=== PATIENT | female | born 1975 | race Caucasian/White ===

== ENCOUNTER 2019-04-18 19:59 | Inpatient (IN) ==
[2019-04-18] MEDS ORDERED: Ondansetron 4 MG/2 ML VIAL IVP ONE (20:45)
[2019-04-18] MEDS ORDERED: 0.9 % Sodium Chloride 1,000 ML IVC ONE (20:45)
[2019-04-18] MEDS ORDERED: *HR* FentaNYL (PF) 100 MCG/2 ML VIAL IVP ONE (20:46)
--- NOTE | 2019-04-18 20:49 | Emergency Department Note ---
Disposition Clinical Impression: Pyelonephritis, Kidney stone Disposition: Still a Patient Condition: Good Referrals: NONE,PCP [Primary Care Provider] - Forms: ED Satisfaction Letter Time of Disposition: 22:15 General Adult HPI - General Chief complaint: ED Nausea/Vomiting/Diarrhea Stated complaint: Flank pain Time Seen by Provider: 04/18/19 20:35 Source: patient Limitations: no limitations Nursing Notes Reviewed: Yes Vital Signs Reviewed: Yes - History of Present Illness HPI Narrative: Patient presenting to the emergency department for evaluation after initially seen at urgent care and diagnosed with UTI. Patient took 1 dose of antibiotics and had vomiting as well as worsening left flank pain. Patient was told to return to the emergency department for any new or worsening symptoms. Overall patient's symptoms started approximately one month ago with increased urinary frequency with associated hesitancy. Patient with no specific dysuria. Patient with no previous UTI. Previous history of kidney stone. Patient has had C-sections but no other abdominal surgeries. Patient's vomiting did not start until just prior to arrival. Flank pain just prior to arrival. No fevers, chills, weight loss, chest pain, shortness of breath, increased sw elling in the extremities, vaginal discharge. Pain Scale: 8 - Related Data Previous Rx's Medication Instructions Recorded Clotrimazole 1 applic MC TID #1 bottle 06/27/18 Allergies Allergy/AdvReac Type Severity Reaction Status Date / Time peanut Allergy Swelling Verified 06/27/18 16:35 of Lip/Tongue/Throat NSAID starting w/T Allergy Fatigued Uncoded 06/27/18 16:35 All systems ED: reviewed and negative except as stated. 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 - Social History Smoking Status: Never smoker Smokeless Tobacco Status: No Alcohol use: Reports: none Drug use: Reports: none Physical Exam General: Mild discomfort secondary to pain as well as emesis bag and vomiting episode Head: Normocephalic Atraumatic Eyes: PERRL, EOMI ENT: Airway patent, no stridor Neck: supple, no meningismus Chest: Lungs clear to auscultation bilateral Cardiac: Regular rate and rhythm, no murmurs, rubs or gallops Abdomen: soft, nontender, nondistended; no guarding, rebound, or tenderness to percussion, left CVA tenderness positive Musculoskeletal: Calves symmetric, nontender. Skin: No rash, normal skin tone. Neuro: Alert and Oriented to person, place, and time; No obvious focal deficit. - General Limitations: no limitations General appearance: alert, in no apparent distress Course - Reevaluation(s) Reevaluation #1: Patient with concern for urinary tract infection as well as elevated white count associated left CVA tenderness. Patient has associated stone at the UVJ junction. Patient was given pain medication as well as Zofran. Patient is con tinuing to feel nauseous. Given the fact that she was unable to tolerate by mouth at home is continuing to feel nauseous and has concern for a UTI that could have a complicated infected stone the patient will need to be seen by urology. Patient is been given a dose of ceftriaxone within the emergency department. Patient's nausea medications a been repeated and the case was discussed with Dr. Bliss. Patient will be able to be evaluated by urology in the a.m. to have her problem addressed. She will need admission by the hospitalist service at this time. Hospitalist has been paged. Patient has been signed out to Dr. Phillips and Dr. Landeros for final admission. Vital Signs Temperature 98.4 F 04/18/19 20:10 Pulse Rate 110 04/18/19 20:10 Respiratory Rate 20 04/18/19 20:10 Blood Pressure 154/95 04/18/19 20:10 O2 Sat by Pulse Oximetry 98 04/18/19 20:10 Temperature 98.4 F 04/18/19 20:10 Pulse Rate 110 04/18/19 20:10 Respiratory Rate 20 04/18/19 20:10 Blood Pressure 154/95 04/18/19 20:10 O2 Sat by Pulse Oximetry 98 04/18/19 20:10 Oxygen Delivery Oxygen Delivery Room Air Medical Decision Making - Lab Data Result diagrams: 04/18/19 21:01 04/18/19 21:01 Lab Results 04/18/19 04/18/19 04/18/19 Range/Units 18:00 20:01 21:01 WBC 14.3 H (4.3-11.1) K/mcL RBC 4.11 (3.82-4.97) M/mcL Hgb 11.9 (11.5-15.4) g/dL Hct 36.1 (35.3-44.9) % MCV 87.8 (83.0-100.0) fL MCH 29.0 (28.0-33.3) pg MCHC 33.0 (31.6-35.5) g/dL RDW 14.4 (11.5-14.5) % Plt Count 305 (140-400) K/mcL MPV 9.7 (9.4-12.4) fL Immature Gran % 0.3 (0-4) % Seg Neutrophils % 93.9 % Lymphocytes % 3.6 % Monocytes % 2.0 % Eosinophils % 0.0 % Basophils % 0.2 % Neutrophils # 13.4 H (1.6-8.9) K/mcL Lymphocytes # 0.5 L (0.6-4.6) K/mcL Monocytes # 0.3 (0.0-1.3) K/mcL Eosinophils # 0.0 (0.0-0.6) K/mcL Basophils # 0.0 (0.0-0.2) K/mcL Sodium (136-145) mEq/L Potassium (3.5-5.1) mEq/L Chloride (98-107) mEq/L Carbon Dioxide (23-29) mEq/L BUN (6-20) mg/dL Creatinine (0.60-1.20) mg/dL Est GFR ( Amer) (> 60) Est GFR (Non-Af Amer) (> 60) BUN/Creatinine Ratio (6-26) Glucose (70-105) mg/dL Calculated Osmolality (280-300) Calcium (8.6-10.3) mg/dL Total Bilirubin (0.3-1.0) mg/dL Direct Bilirubin (0.0-0.2) mg/dL Indirect Bilirubin (0.0-1.2) mg/dL AST (13-39) Units/L ALT (7-52) Units/L Alkaline Phosphatase (34-104) Units/L Serum Total Protein (6.4-8.9) g/dL Albumin (3.5-5.7) g/dL Globulin (2.4-3.5) g/dL Albumin/Globulin Ratio (1.1-2.2) Lipase (11-82) Units/L Urine Color [place] A (Yellow) Urine Clarity Cloudy A (Clear) Urine pH 5.5 (5.0-8.0) pH Units Ur Specific [place] 1.028 H (1.010-1.025) Urine Protein 30 H (Neg-Trace) mg/dL Urine Glucose (UA) Normal (Normal) mg/dL Urine Ketones Trace H (Negative) mg/dL Urine Blood Moderate H (Negative) Urine Nitrite Positive A (Negative) Urine Bilirubin Negative (Negative) Urine Urobilinogen Normal (Normal) mg/dL Ur Leukocyte Esterase Moderate H (Negative) Urine Microscopic RBC 0-3 (0-3) per hpf Urine Microscopic WBC TNTC H (0-3) per hpf Ur Squamous Epith Cells Many H (None-Few) per lpf Urine Bacteria Few (None-Few) per hpf Hyaline Casts None Seen (None-Few) per lpf Urine Yeast Few H (None Seen) per hpf Ur Culture Indicated? YES A (NO) Urine Test Negative (Negative) 04/18/19 Range/Units 21:01 WBC (4.3-11.1) K/mcL RBC (3.82-4.97) M/mcL Hgb (11.5-15.4) g/dL Hct (35.3-44.9) % MCV (83.0-100.0) fL MCH (28.0-33.3) pg MCHC (31.6-35.5) g/dL RDW (11.5-14.5) % Plt Count (140-400) K/mcL MPV (9.4-12.4) fL Immature Gran % (0-4) % Seg Neutrophils % % Lymphocytes % % Monocytes % % Eosinophils % % Basophils % % Neutrophils # (1.6-8.9) K/mcL Lymphocytes # (0.6-4.6) K/mcL Monocytes # (0.0-1.3) K/mcL Eosinophils # (0.0-0.6) K/mcL Basophils # (0.0-0.2) K/mcL Sodium 136 (136-145) mEq/L Potassium 3.6 (3.5-5.1) mEq/L Chloride 102 (98-107) mEq/L Carbon Dioxide 24 (23-29) mEq/L BUN 14 (6-20) mg/dL Creatinine 0.95 (0.60-1.20) mg/dL Est GFR ( Amer) > 60 (> 60) Est GFR (Non-Af Amer) > 60 (> 60) BUN/Creatinine Ratio 15 (6-26) Glucose 156 H (70-105) mg/dL Calculated Osmolality 286 (280-300) Calcium 9.3 (8.6-10.3) mg/dL Total Bilirubin 0.4 (0.3-1.0) mg/dL Direct Bilirubin 0.1 (0.0-0.2) mg/dL Indirect Bilirubin 0.3 (0.0-1.2) mg/dL AST 19 (13-39) Units/L ALT 15 (7-52) Units/L Alkaline Phosphatase 56 (34-104) Units/L Serum Total Protein 7.3 (6.4-8.9) g/dL Albumin 4.3 (3.5-5.7) g/dL Globulin 3.0 (2.4-3.5) g/dL Albumin/Globulin Ratio 1.4 (1.1-2.2) Lipase 24 (11-82) Units/L Urine Color (Yellow) Urine Clarity (Clear) Urine pH (5.0-8.0) pH Units Ur Specific [place] (1.010-1.025) Urine Protein (Neg-Trace) mg/dL Urine Glucose (UA) (Normal) mg/dL Urine Ketones (Negative) mg/dL Urine Blood (Negative) Urine Nitrite (Negative) Urine Bilirubin (Negative) Urine Urobilinogen (Normal) mg/dL Ur Leukocyte Esterase (Negative) Urine Microscopic RBC (0-3) per hpf Urine Microscopic WBC (0-3) per hpf Ur Squamous Epith Cells (None-Few) per lpf Urine Bacteria (None-Few) per hpf Hyaline Casts (None-Few) per lpf Urine Yeast (None Seen) per hpf Ur Culture Indicated? (NO) Urine Test (Negative)
[2019-04-18 21:01] LABS: Bacteria,Urine Few per hpf (None-Few); Bilirubin,Urine Negative (Negative); Blood,Urine Moderate (Negative); Clarity,Urine Cloudy (Clear); Color,Urine Orange (Yellow); Glucose,Urine (UA) Normal (Normal); Hyaline Casts,Urine None Seen per lpf (None-Few); Ketones,Urine Trace mg/dL (Negative); Leukocyte Esterase,Urine Moderate (Negative); Nitrite,Urine Positive (Negative); PH,Urine 5.5 pH Units (5.0-8.0); Protein,Urine 30 mg/dL (Neg-Trace); RBC,Urine 0-3 per hpf (0-3); Specific Gravity,Urine 1.028 (1.010-1.025); Squamous Epithelial Cell,Urine Many per lpf (None-Few); Urobilinogen,Urine Normal (Normal); WBC,Urine TNTC per hpf (0-3)
[2019-04-18 21:12] LABS: Yeast,Urine Few per hpf (None Seen)
[2019-04-18 21:13] LABS: Basophils % 0.2 %; Hematocrit 36.1 % (35.3-44.9); Hemoglobin 11.9 g/dL (11.5-15.4); Immature Granulocytes % 0.3 % (0-4); Lymphocytes # 0.5 K/mcL (0.6-4.6); Lymphocytes % 3.6 %; Mean Corpuscular Volume 87.8 fL (83.0-100.0); Mean Platelet Volume 9.7 fL (9.4-12.4); Monocytes # 0.3 K/mcL (0.0-1.3); Neutrophils # 13.4 K/mcL (1.6-8.9); Platelet Count 305 K/mcL (140-400); Red Blood Count 4.11 M/mcL (3.82-4.97); Red Cell Distribution Width 14.4 % (11.5-14.5); Segmented Neutrophils % 93.9 %
[2019-04-18] MEDS ORDERED: cefTRIAXone 1,000 MG in Water for inj. (sterile) 20 ML 10 ML IVP ONE (21:31)
[2019-04-18 21:32] LABS: Alanine Aminotransferase 15 Units/L (7-52); Albumin 4.3 g/dL (3.5-5.7); Albumin/Globulin Ratio 1.4 (1.1-2.2); Alkaline Phosphatase 56 Units/L (34-104); Aspartate Amino Transferase 19 Units/L (13-39); BUN/Creatinine Ratio 15 (6-26); Bilirubin,Direct 0.1 mg/dL (0.0-0.2); Bilirubin,Indirect 0.3 mg/dL (0.0-1.2); Bilirubin,Total 0.4 mg/dL (0.3-1.0); Blood Urea Nitrogen 14 mg/dL (6-20); Calcium 9.3 mg/dL (8.6-10.3); Carbon Dioxide 24 mEq/L (23-29); Chloride 102 mEq/L (98-107); Glucose 156 mg/dL (70-105); Lipase 24 Units/L (11-82); Osmolality,Calculated 286 (280-300); Potassium 3.6 mEq/L (3.5-5.1); Sodium 136 mEq/L (136-145); Total Protein 7.3 g/dL (6.4-8.9); eGFR For Non-African Americans > 60 (> 60)
[2019-04-18] MEDS ORDERED: Metoclopramide 10 MG/2 ML VIAL IVP STA (23:15)
--- NOTE | 2019-04-18 23:39 | Emergency Department Note ---
Disposition Clinical Impression: Pyelonephritis, Kidney stone Disposition: Admitted As Inpatient Condition: Good Referrals: NONE,PCP [Primary Care Provider] - Forms: ED Satisfaction Letter Time of Disposition: 23:37 General Adult HPI - General Chief complaint: ED Nausea/Vomiting/Diarrhea Stated complaint: Flank pain Time Seen by Provider: 04/18/19 20:35 Source: patient Limitations: no limitations - History of Present Illness HPI Narrative: Patient was signed out by the prior provider. Please see their documentation for complete history and physical. 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 Donaldson did speak with urology and a consult was placed. Patient will be admitted to the hospitalist. Time: 23:37 Vital Signs Temperature 98.4 F 04/18/19 20:10 Pulse Rate 110 04/18/19 20:10 Respiratory Rate 20 04/18/19 20:10 Blood Pressure 154/95 04/18/19 20:10 O2 Sat by Pulse Oximetry 98 04/18/19 20:10 Temperature 98.4 F 04/18/19 20:10 Pulse Rate 110 04/18/19 20:10 Respiratory Rate 20 04/18/19 20:10 Blood Pressure 154/95 04/18/19 20:10 O2 Sat by Pulse Oximetry 98 04/18/19 20:10 Oxygen Delivery Oxygen Delivery Room Air Medical Decision Making - Lab Data Result diagrams: 04/18/19 21:01 04/18/19 21:01 Lab Results 04/18/19 04/18/19 04/18/19 Range/Units 18:00 20:01 21:01 WBC 14.3 H (4.3-11.1) K/mcL RBC 4.11 (3.82-4.97) M/mcL Hgb 11.9 (11.5-15.4) g/dL Hct 36.1 (35.3-44.9) % MCV 87.8 (83.0-100.0) fL MCH 29.0 (28.0-33.3) pg MCHC 33.0 (31.6-35.5) g/dL RDW 14.4 (11.5-14.5) % Plt Count 305 (140-400) K/mcL MPV 9.7 (9.4-12.4) fL Immature Gran % 0.3 (0-4) % Seg Neutrophils % 93.9 % Lymphocytes % 3.6 % Monocytes % 2.0 % Eosinophils % 0.0 % Basophils % 0.2 % Neutrophils # 13.4 H (1.6-8.9) K/mcL Lymphocytes # 0.5 L (0.6-4.6) K/mcL Monocytes # 0.3 (0.0-1.3) K/mcL Eosinophils # 0.0 (0.0-0.6) K/mcL Basophils # 0.0 (0.0-0.2) K/mcL Sodium (136-145) mEq/L Potassium (3.5-5.1) mEq/L Chloride (98-107) mEq/L Carbon Dioxide (23-29) mEq/L BUN (6-20) mg/dL Creatinine (0.60-1.20) mg/dL Est GFR ( Amer) (> 60) Est GFR (Non-Af Amer) (> 60) BUN/Creatinine Ratio (6-26) Glucose (70-105) mg/dL Calculated Osmolality (280-300) Calcium (8.6-10.3) mg/dL Total Bilirubin (0.3-1.0) mg/dL Direct Bilirubin (0.0-0.2) mg/dL Indirect Bilirubin (0.0-1.2) mg/dL AST (13-39) Units/L ALT (7-52) Units/L Alkaline Phosphatase (34-104) Units/L Serum Total Protein (6.4-8.9) g/dL Albumin (3.5-5.7) g/dL Globulin (2.4-3.5) g/dL Albumin/Globulin Ratio (1.1-2.2) Lipase (11-82) Units/L Urine Color [place] A (Yellow) Urine Clarity Cloudy A (Clear) Urine pH 5.5 (5.0-8.0) pH Units Ur Specific [place] 1.028 H (1.010-1.025) Urine Protein 30 H (Neg-Trace) mg/dL Urine Glucose (UA) Normal (Normal) mg/dL Urine Ketones Trace H (Negative) mg/dL Urine Blood Moderate H (Negative) Urine Nitrite Positive A (Negative) Urine Bilirubin Negative (Negative) Urine Urobilinogen Normal (Normal) mg/dL Ur Leukocyte Esterase Moderate H (Negative) Urine Microscopic RBC 0-3 (0-3) per hpf Urine Microscopic WBC TNTC H (0-3) per hpf Ur Squamous Epith Cells Many H (None-Few) per lpf Urine Bacteria Few (None-Few) per hpf Hyaline Casts None Seen (None-Few) per lpf Urine Yeast Few H (None Seen) per hpf Ur Culture Indicated? YES A (NO) Urine Test Negative (Negative) 04/18/19 Range/Units 21:01 WBC (4.3-11.1) K/mcL RBC (3.82-4.97) M/mcL Hgb (11.5-15.4) g/dL Hct (35.3-44.9) % MCV (83.0-100.0) fL MCH (28.0-33.3) pg MCHC (31.6-35.5) g/dL RDW (11.5-14.5) % Plt Count (140-400) K/mcL MPV (9.4-12.4) fL Immature Gran % (0-4) % Seg Neutrophils % % Lymphocytes % % Monocytes % % Eosinophils % % Basophils % % Neutrophils # (1.6-8.9) K/mcL Lymphocytes # (0.6-4.6) K/mcL Monocytes # (0.0-1.3) K/mcL Eosinophils # (0.0-0.6) K/mcL Basophils # (0.0-0.2) K/mcL Sodium 136 (136-145) mEq/L Potassium 3.6 (3.5-5.1) mEq/L Chloride 102 (98-107) mEq/L Carbon Dioxide 24 (23-29) mEq/L BUN 14 (6-20) mg/dL Creatinine 0.95 (0.60-1.20) mg/dL Est GFR ( Amer) > 60 (> 60) Est GFR (Non-Af Amer) > 60 (> 60) BUN/Creatinine Ratio 15 (6-26) Glucose 156 H (70-105) mg/dL Calculated Osmolality 286 (280-300) Calcium 9.3 (8.6-10.3) mg/dL Total Bilirubin 0.4 (0.3-1.0) mg/dL Direct Bilirubin 0.1 (0.0-0.2) mg/dL Indirect Bilirubin 0.3 (0.0-1.2) mg/dL AST 19 (13-39) Units/L ALT 15 (7-52) Units/L Alkaline Phosphatase 56 (34-104) Units/L Serum Total Protein 7.3 (6.4-8.9) g/dL Albumin 4.3 (3.5-5.7) g/dL Globulin 3.0 (2.4-3.5) g/dL Albumin/Globulin Ratio 1.4 (1.1-2.2) Lipase 24 (11-82) Units/L Urine Color (Yellow) Urine Clarity (Clear) Urine pH (5.0-8.0) pH Units Ur Specific [place] (1.010-1.025) Urine Protein (Neg-Trace) mg/dL Urine Glucose (UA) (Normal) mg/dL Urine Ketones (Negative) mg/dL Urine Blood (Negative) Urine Nitrite (Negative) Urine Bilirubin (Negative) Urine Urobilinogen (Normal) mg/dL Ur Leukocyte Esterase (Negative) Urine Microscopic RBC (0-3) per hpf Urine Microscopic WBC (0-3) per hpf Ur Squamous Epith Cells (None-Few) per lpf Urine Bacteria (None-Few) per hpf Hyaline Casts (None-Few) per lpf Urine Yeast (None Seen) per hpf Ur Culture Indicated? (NO) Urine Test (Negative) S.B.A.R. - S.B.A.R. Situation: Demographics Background: Presenting Complaint Assessment: Vital Signs, Course and respsone to treatment, Patient/Family Expectation Recommendation: Barrier(s) to disposition, Recommendation based on pending studies, treatments, or consults Eric Report Given to: Dr. Esther Reyes Repor Time: 23:36 Attestation Statement - Attestation Attestation: I, Mervin Phillips MD, personally evaluated this patient and discussed their management with the resident physician. I reviewed the resident's note and agree with the documented findings, medical decision making, and plan of care. This patient was signed out at shift change from Dr. Donaldson. Please refer to his note for complete details of history and physical examination. Patient has a kidney stone with UTI and uncontrolled pain. Dr. Donaldson as discussed with the urologist, Dr. Beltrán. At shift change we are just waiting list to return paged for admission. On examination patient is a well-developed well-nourished female in no acute distress. She is alert and oriented 3. There is no cyanosis or diaphoresis. Breath sounds are clear and equal bilaterally. Heart regular with a mild tachycardia. The hospitalist, Dr. Santana, was consulted and accepted admission of the patient.
[2019-04-19] MEDS ORDERED: Ondansetron 4 MG/2 ML VIAL IVP PRN ×2 (00:17→11:38)
[2019-04-19] MEDS ORDERED: *HR* OxyCODONE Immed Rel 5 MG TABLET PO PRN ×3 (00:17→11:38)
[2019-04-19] MEDS ORDERED: traMADol 50 MG TABLET PO PRN ×2 (00:17→11:38)
[2019-04-19] MEDS ORDERED: Naloxone 0.4 MG/ML INJ IVP PRN ×2 (00:17→11:38)
[2019-04-19] MEDS ORDERED: Acetaminophen 325 MG TABLET PO PRN ×2 (00:17→11:38)
--- NOTE | 2019-04-19 00:45 | Internal Med History&Physical ---
Date of Encounter: 04/19/19 Time of Encounter: 00:39 Internal Medicine - H&P: HPI Chief complaint: flank pain Admitted From: Home Plans for Post Hospital Care: Home History of present illness: Francois Alvarez is a 43 year old woman with a history of prior right-sided nephrolithiasis that passed spontaneously who presents to the ER stating she has been having urinary urgency for the past 1 month but today developed left flank pain radiating to her left lower abdomen. This was also accompanied by chills, n ausea and vomiting. No vaginal discharge reported. In the ER she was tachycardic and seen to have leukocytosis. CT scan showed 1 or 2 left UVJ calculi largest measuring 4mm accompanied moderate left-sided hydronephrosis and hydroureter with significant infiltration of the perinephric and periureteric fat. The left kidney was also edematous. She was given analgesics, anti-emetics, fluids and antibiotics. She is admitted for further care. Vitals: Reviewed General: Well developed white woman sitting in bed in NAD Skin: Warm and supple. HEENT: Moist mucous membranes. No conjunctivae pallor. Neck: No lymphadenopathy. No JVD. No carotid bruits. No palpable thyroid. Chest: Normal thoracic expansion. Normal breath sounds. Clear to auscultation. Heart: Normal S1 & S2; rhythmic. No rubs or murmurs. Abdomen: Non-distended, soft and minimally tender to palpation in the left flank. No peritoneal reaction. Extremities: No clubbing, cyanosis or edema. No calf tenderness. Normal distal pulses. Neurological: Awake, alert and oriented to person, place and time. No focal deficits. Psych: Affect appropriate. Assessment/Plan 1. Symptomatic nephrolithiasis: Now complicated with hydronephrosis. Will consult urology for ongoing management. Will place on ongoing IVF, start tamsulosin and pain control measures. 2. Sepsis secondary to complicated UTI: As evidenced by tachycardia and leukocytosis. Will send blood cultures; urine cultures already collected. Continue ceftriaxone empirically and fluid resuscitation. Past Med Surg Social Fam HX - Past Medical History Medical history: non-contributory Psychiatric history: no psych history - Past Surgical History Additional surgical history: c section x3 - Social History Smoking Status: Never smoker Smokeless Tobacco Status: No Alcohol use: none Drug use: none Internal Medicine - H&P: Meds No Known Home Drugs 04/19/19 [History] Allergy/AdvReac Type Severity Reaction Status Date / Time peanut Allergy Swelling Verified 06/27/18 16:35 of Lip/Tongue/Throat NSAID starting w/T Allergy Fatigued Uncoded 06/27/18 16:35 All Systems PM: A 10-system review of systems was performed and is negative for pertinent findings except as documented above in the HPI. Family history reviewed and found non-contributory. - Constitutional Vitals: Temp Pulse Resp BP Pulse Ox 98.4 F 107 18 114/74 96 04/18/19 20:10 04/19/19 00:17 04/19/19 00:17 04/19/19 00:17 04/19/19 00:17 Exam: . Internal Med - H&P Results - Labs CBC & Chem 7: 04/18/19 21:01 04/18/19 21:01 Labs: Short CBC 04/18/19 Range/Units 21:01 WBC 14.3 H (4.3-11.1) K/mcL Hgb 11.9 (11.5-15.4) g/dL Hct 36.1 (35.3-44.9) % Plt Count 305 (140-400) K/mcL Neutrophils # 13.4 H (1.6-8.9) K/mcL BMP 04/18/19 21:01 Sodium 136 Potassium 3.6 Chloride 102 Carbon Dioxide 24 BUN 14 Creatinine 0.95 Glucose 156 H Calcium 9.3 Liver Function 04/18/19 Range/Units 21:01 Total Bilirubin 0.4 (0.3-1.0) mg/dL Direct Bilirubin 0.1 (0.0-0.2) mg/dL AST 19 (13-39) Units/L ALT 15 (7-52) Units/L Alkaline Phosphatase 56 (34-104) Units/L Albumin 4.3 (3.5-5.7) g/dL Urine 04/18/19 Range/Units 20:01 Urine Color [place] A (Yellow) Urine Clarity Cloudy A (Clear) Urine pH 5.5 (5.0-8.0) pH Units Ur Specific [place] 1.028 H (1.010-1.025) Urine Protein 30 H (Neg-Trace) mg/dL Urine Glucose (UA) Normal (Normal) mg/dL - Impressions ITS Impressions Abdomen/Pelvis CT 04/18/19 20:46 IMPRESSION: 1. 1 or 2 left UVJ calculi, the largest measuring 4 mm. Moderate left-sided hydronephrosis and hydroureter. The left kidney is edematous with infiltration of the perinephric fat. Additional nonobstructive right renal calculi. 2. No other acute findings within the abdomen or pelvis. 3. 0.9 cm indeterminate left renal lesion, likely a Bosniak 2 cyst. Consider follow-up renal MRI for confirmation. 4. Probable nabothian cyst in the lower uterine segment or cervix. D/ / Travon Dowling MD / Travon Dowling MD Interpreting Provider: Travon Dowling MD - Time Spent With Patient Total time spent is greater than 50% in coordination of care (as documented) at patient's floor/unit and/or counseling patient: Greater than 35 minutes
[2019-04-19] MEDS: Ringers Solution, Lactated 1,000 ML IVC SCH ×2 (01:43→08:30)
[2019-04-19 05:37] LABS: Basophils % 0.1 %; Eosinophils % 0.1 %; Hematocrit 30.5 % (35.3-44.9); Immature Granulocytes % 0.5 % (0-4); Lymphocytes # 0.5 K/mcL (0.6-4.6); Lymphocytes % 2.8 %; Mean Corpuscular HGB Conc 33.1 g/dL (31.6-35.5); Mean Corpuscular Volume 87.6 fL (83.0-100.0); Mean Platelet Volume 9.4 fL (9.4-12.4); Monocytes % 5.8 %; Neutrophils # 15.6 K/mcL (1.6-8.9); Platelet Count 222 K/mcL (140-400); Red Blood Count 3.48 M/mcL (3.82-4.97); Red Cell Distribution Width 14.7 % (11.5-14.5); Segmented Neutrophils % 90.7 %
[2019-04-19 05:39] LABS: Hemoglobin 10.1 g/dL (11.5-15.4)
[2019-04-19 05:45] LABS: BUN/Creatinine Ratio 14 (6-26); Blood Urea Nitrogen 13 mg/dL (6-20); Calcium 8.6 mg/dL (8.6-10.3); Carbon Dioxide 23 mEq/L (23-29); Chloride 107 mEq/L (98-107); Glucose 147 mg/dL (70-105); Osmolality,Calculated 287 (280-300); Potassium 3.5 mEq/L (3.5-5.1); Sodium 137 mEq/L (136-145); eGFR For Non-African Americans > 60 (> 60)
[2019-04-19 05:46] LABS: INR 1.1; Prothrombin Time 12.8 Seconds (9.4-12.1)
[2019-04-19 05:48] LABS: Activated Partial Thrombo Time 26.5 Seconds (26.0-36.0)
[2019-04-19] MEDS ORDERED: *HR* Heparin 5,000 UNIT/ML VIAL SQ SCH (06:00)
[2019-04-19] MEDS ORDERED: Isovue-300 50 ML VIAL ONE (09:48)
--- NOTE | 2019-04-19 09:56 | Operative Note ---
Date of procedure: 04/19/19 Pre-op diagnosis: Left hydronephrosis Post-op diagnosis: same Procedure: Cystoscopy, left retrograde ureteral pyelography left double-J stent Implants: 4.8 x 24 left double-J stent Complications: None Anesthesia: GETA Surgeon: Terry Suh Was there an fire control assistant present: No Estimated blood loss (cc): 0 Specimen: none Condition: stable Disposition: PACU Procedure in Detail: The patient brought the operating theater placed on table supine position present of Augmentin and administered a general anesthetic. The patient placed dorsal lithotomy prepped and draped in normal sterile fashion. A cystoscope was inserted urethral meatus and advanced with the bladder under direct visualization. There were no mucosal abnormalities. Using an open-ended catheter and gentle injection of contrast, a retrograde ureteral Polygram was performed. Intraoperative interpretation of radial graphic images in real time by surgeon revealed a filling defect in distal ureter consistent with stone. Above this l evel significant hydroureteronephrosis. Based upon intraoperative interpretation of radiographic images urinary diversion was indicated. Under fluoroscopic guidance a Glidewire was advanced into the left renal pelvis. Over the Glidewire a 4.8 x 24 ureteral stent was advanced. Once the stent was felt in good position the Glidewire was removed. Fluoroscopy confirmed good position of the stent. The patient's bladder was drained of irrigant. Allis was removed. This ended the operative procedure.
--- NOTE | 2019-04-19 09:58 | Urology - Consult Note ---
Date of Encounter: 04/19/19 Time of Encounter: 09:56 - Assessment and Plan (1) Hydronephrosis Current Visit: Yes Status: Acute Assessment and plan: Hydronephrosis with obstructing ureteral calculus in setting of active UTI is a potentially life-threatening scenario. Discussed findings and options for management. Plan: Urgent urinary diversion with stent placement. Qualifiers: Hydronephrosis type: with ureteral calculous obstruction Qualified Code(s): N13.2 - Hydronephrosis with renal and ureteral calculous obstruction (2) Ureteral calculus Current Visit: Yes Status: Acute Assessment and plan: 4 mm distal left ureteral calculus with hydronephrosis. Unsafe to manipulate stone in setting of active UTI. Discussed staged options for stone address. Plan: Urgent urinary diversion during this hospital admission. Outpatient follow-up in 1 week for further discussion regarding definitive stone management. (3) Pyelonephritis Current Visit: Yes Status: Acute Assessment and plan: Patient subjectively with fevers and chills, white count mildly elevated at 14. CT suggests pyelonephritis. Urine is grossly positive. Obstructing left ureteral calculus with hydronephrosis. Plan: Urgent urinary diversion with stent placement. Culture specific antibiotic management as per primary service. Urology CN:HPI Consult date: 04/19/19 Requesting physician: Darren Brandt History of present illness: Francois Alvarez is a 43 year old woman with a history of prior right-sided nephrolithiasis that passed spontaneously who presents to the ER stating she has been having urinary urgency for the past 1 month but today developed left flank pain radiating to her left lower abdomen. This was also accompanied by chills, nausea and vomiting. No vaginal discharge reported. In the ER she was tachycardic and seen to have leukocytosis. CT scan showed 1 or 2 left UVJ calculi largest measuring 4mm accompanied moderate left-sided hydronephrosis and hydroureter with significant infiltration of the perinephric and periureteric fat. The left kidney was also edematous. She was given analgesics, anti-emetics, fluids and antibiotics. She is admitted for further care. Were consult for evaluation management of left ureteral obstruction and hydronephrosis in setting of active UTI. Past Med Surg Social Fam HX - Past Medical History Medical history: non-contributory Psychiatric history: no psych history - Past Surgical History Additional surgical history: c section x3 - Social History Smoking Status: Never smoker Smokeless Tobacco Status: No Alcohol use: none Drug use: none - Additional Family History Additional family history: Noncontributory Medications and Allergies No Known Home Drugs 04/19/19 [History] Allergy/AdvReac Type Severity Reaction Status Date / Time peanut Allergy Swelling Verified 06/27/18 16:35 of Lip/Tongue/Throat NSAID starting w/T Allergy Fatigued Uncoded 06/27/18 16:35 Review of Systems - Constitutional chills, fever(s) - EENT Nose, mouth and throat: no dizziness, no headache(s) - Cardiovascular no chest pain, no diaphoresis - Gastrointestinal abdominal pain, no fecal incontinence - Genitourinary Genitourinary: urinary frequency, no dysuria - Musculoskeletal back pain, no muscle weakness Exam Initial Vital Signs Temp Pulse Resp BP Pulse Ox 98.4 F 110 20 154/95 98 04/18/19 20:10 04/18/19 20:10 04/18/19 20:10 04/18/19 20:10 04/18/19 20:10 - General physical appearance Present: well developed, well nourished, no distress - Eyes Present: normal ocular movement. Absent: icteric - ENT Present: normal nares, normal mucosa - Neck Present: trachea midline - Respiratory Present: normal respiratory effort - Abdomen Abdomen: Present: soft, non tender - Integumentary Present: no rash, no growths - Neurologic Present: normal coordination. Absent: disoriented - Musculoskeletal Present: other (Moves all 4 extremities bilaterally) Urology Results - Labs 04/19/19 05:08 04/19/19 05:08 Abnormal lab results WBC 17.2 K/mcL (4.3-11.1) H 04/19/19 05:08 RBC 3.48 M/mcL (3.82-4.97) L 04/19/19 05:08 Hgb 10.1 g/dL (11.5-15.4) L D 04/19/19 05:08 Hct 30.5 % (35.3-44.9) L 04/19/19 05:08 RDW 14.7 % (11.5-14.5) H 04/19/19 05:08 15.6 K/mcL (1.6-8.9) H 04/19/19 05:08 0.5 K/mcL (0.6-4.6) L 04/19/19 05:08 PT 12.8 Seconds (9.4-12.1) H 04/19/19 05:08 Glucose 147 mg/dL (70-105) H 04/19/19 05:08 POC Glucose 145 mg/dL (70-99) H 04/19/19 05:32 [place] (Yellow) A 04/18/19 20:01 Cloudy (Clear) A 04/18/19 20:01 Ur Specific [place] 1.028 (1.010-1.025) H 04/18/19 20:01 30 mg/dL (Neg-Trace) H 04/18/19 20:01 Trace mg/dL (Negative) H 04/18/19 20:01 Moderate (Negative) H 04/18/19 20:01 Positive (Negative) A 04/18/19 20:01 Ur Leukocyte Esterase Moderate (Negative) H 04/18/19 20:01 TNTC per hpf (0-3) H 04/18/19 20:01 Ur Squamous Epith Cells Many per lpf (None-Few) H 04/18/19 20:01 Few per hpf (None Seen) H 04/18/19 20:01 Ur Culture Indicated? YES (NO) A 04/18/19 20:01 Diabetes panel 04/18/19 04/19/19 Range/Units 21:01 05:08 Sodium 136 137 (136-145) mEq/L Potassium 3.6 3.5 (3.5-5.1) mEq/L Chloride 102 107 (98-107) mEq/L Carbon Dioxide 24 23 (23-29) mEq/L BUN 14 13 (6-20) mg/dL Creatinine 0.95 0.96 (0.60-1.20) mg/dL Glucose 156 H 147 H (70-105) mg/dL Calcium 9.3 8.6 (8.6-10.3) mg/dL AST 19 (13-39) Units/L ALT 15 (7-52) Units/L Alkaline Phosphatase 56 (34-104) Units/L Albumin 4.3 (3.5-5.7) g/dL Calcium panel 04/18/19 04/19/19 Range/Units 21:01 05:08 Calcium 9.3 8.6 (8.6-10.3) mg/dL Albumin 4.3 (3.5-5.7) g/dL Pituitary panel 04/18/19 04/19/19 Range/Units 21:01 05:08 Sodium 136 137 (136-145) mEq/L Potassium 3.6 3.5 (3.5-5.1) mEq/L Chloride 102 107 (98-107) mEq/L Carbon Dioxide 24 23 (23-29) mEq/L BUN 14 13 (6-20) mg/dL Creatinine 0.95 0.96 (0.60-1.20) mg/dL Glucose 156 H 147 H (70-105) mg/dL Calcium 9.3 8.6 (8.6-10.3) mg/dL Adrenal panel 04/18/19 04/19/19 Range/Units 21:01 05:08 Sodium 136 137 (136-145) mEq/L Potassium 3.6 3.5 (3.5-5.1) mEq/L Chloride 102 107 (98-107) mEq/L Carbon Dioxide 24 23 (23-29) mEq/L BUN 14 13 (6-20) mg/dL Creatinine 0.95 0.96 (0.60-1.20) mg/dL Glucose 156 H 147 H (70-105) mg/dL Calcium 9.3 8.6 (8.6-10.3) mg/dL Total Bilirubin 0.4 (0.3-1.0) mg/dL AST 19 (13-39) Units/L ALT 15 (7-52) Units/L Alkaline Phosphatase 56 (34-104) Units/L Albumin 4.3 (3.5-5.7) g/dL All other labs normal. - Imaging CT scan - abdomen: image reviewed CT scan - pelvis: image reviewed (CT images reviewed and interpreted independently) Consult Discharge Plan - Plan Referrals: NONE,PCP [Primary Care Provider] -
--- NOTE | 2019-04-19 10:08 | Anesthesia Evaluation PreOp ---
Date of Encounter: 04/19/19 Time of Encounter: 10:06 - Past History Planned Operation: cysto Cardiac History: Denies any Significant Hx Pulmonary History: Denies Any Significant HX [employer] History: Denies Any Significant HX Other Medical History: Denies Any Significant HX Anesthesia History: No Prior Anesthetic Complications, Past Anesthesia Alcohol Use: none Drug use: none Medications and Allergies No Known Home Drugs 04/19/19 [History] Allergy/AdvReac Type Severity Reaction Status Date / Time peanut Allergy Swelling Verified 06/27/18 16:35 of Lip/Tongue/Throat NSAID starting w/T Allergy Fatigued Uncoded 06/27/18 16:35 - Meds/Allergy Pre-op Review Medications Reviewed: Yes Allergies Reviewed: Yes Beta Blockers on Current Med List: No Anesthesia Results - Labs 04/19/19 05:08 04/19/19 05:08 Anesthesia Exam Vital Signs/O2 Sat/Glucose, Most Recent Temp Pulse Resp BP Pulse Ox 98.6 F 96 16 106/69 96 04/19/19 06:56 04/19/19 06:56 04/19/19 06:56 04/19/19 06:56 04/19/19 08:12 Blood Glucose* 145 NPO (# of Hours): mn Pain Scale: 0 Pain Scale Used: Numeric (1 - 10) - HEENT Pupil (Motor): Pupils equal Mallampati: I Teeth: Normal Oral Opening: Greater than 3 - [employer] LOC: Oriented [employer] Motor: Normal RUE, Normal LUE, Normal RLE, Normal LLE, Normal Face [employer] Sensory: Normal: RUE, LUE, RLE, LLE, Face - Cardiac Rhythm: Regular Murmur: None JVD: No Carotid Bruit: No - Pulmonary Breath Sounds: bilateral Clear Respiratory Effort: Symmetrical Anesthesia Assess/Plan ASA Score: 2 Level of consciousness: Cooperative Anesthetic Plan: General Autologous Blood: No Monitoring Plan: Standard Monitors Recovery Plan: PACU
[2019-04-19] MEDS ORDERED: *HR* Propofol 200 MG/20 ML VIAL IVP ONE (10:10)
[2019-04-19] MEDS ORDERED: *HR* FentaNYL (PF) 100 MCG/2 ML VIAL ONE (10:10)
[2019-04-19] MEDS ORDERED: Dexamethasone 4 MG/ML VIAL ONE (10:11)
[2019-04-19] MEDS ORDERED: Ondansetron 4 MG/2 ML VIAL ONE (10:11)
[2019-04-19] MEDS ORDERED: Lidocaine -MPF 2% 2 ML VIAL ONE (10:11)
--- NOTE | 2019-04-19 10:27 | Event Note ---
Date of Encounter: 04/19/19 Time of Encounter: 11:00 Patient seen and evaluated by hospitalist earlier this morning and also by myself. Briefly patient is a 43-year-old female with past medical history is that for 4 nephrolithiasis who presented due to a one-month history of left flank pain with urinary urgency found to have nephrolithiasis on imaging. Urology consulted and patient now postop day 0 left double-J stent Will continue treatment for sepsis secondary to pyelonephritis with IV antibiotics and IV fluids; urine cultures pending
[2019-04-19] MEDS ORDERED: *HR* Promethazine 25 MG/ML VIAL IVP PRN (10:51)
[2019-04-19] MEDS ORDERED: Ondansetron 4 MG/2 ML VIAL IVP ONE (10:51)
[2019-04-19] MEDS ORDERED: cefTRIAXone 2,000 MG in Water for inj. (sterile) 20 ML 20 ML IVP SCH (11:00)
--- NOTE | 2019-04-19 11:08 | Anesthesia Evaluation Post Op ---
Date of Encounter: 04/19/19 Time of Encounter: 11:07 - Vital Signs Vital Signs: Vital Signs/O2 Sat/Glucose, Most Recent Temp Pulse Resp BP Pulse Ox 98.3 F 96 16 109/70 95 04/19/19 10:41 04/19/19 11:01 04/19/19 11:01 04/19/19 11:01 04/19/19 11:01 Blood Glucose* 145 - Lungs Lungs: Clear Ascult./Percussion - Airway Airway: Non-obstructed - Cardiovascular Regular Rate, Baseline Rhythm - Mental Status Mental Status: Alert & Oriented, Answers Appropriately - Pain Pain Scale: 0 Pain Scale used: Numeric (1 - 10) - Nausea Vomiting Nausea Vomiting: Not Present - Hydration Hydration: Tolerates oral liquids, Ice chips Notes: 04/19/19 11:08 naac - Discharge PostOp Status: Transfer Patient to floor
[2019-04-19] MEDS ORDERED: Ringers Solution, Lactated 1,000 ML IVC SCH (11:38)
[2019-04-19] MEDS: *HR* Heparin 5,000 UNIT/ML VIAL SQ SCH (17:29)
[2019-04-20] MEDS: *HR* Heparin 5,000 UNIT/ML VIAL SQ SCH ×2 (05:45→17:45)
--- NOTE | 2019-04-20 10:26 | Internal Med Progress Note ---
Hospitalist Progress Note - Encounter Date of Encounter: 04/20/19 Time of Encounter: 11:00 - Subjective Interval History: Patient with past medical history is that for 4 nephrolithiasis presented due to a one-month history of left flank pain with urinary urgency found to have nephrolithiasis on imaging. Patient now postop day 1 left double-J stent Patient also with sepsis secondary to pyelonephritis; urine cultures pending - Exam Vitals: Temp Pulse Resp BP Pulse Ox 98.3 F 81 16 109/71 96 04/20/19 06:54 04/20/19 06:54 04/20/19 06:54 04/20/19 06:54 04/20/19 06:54 Exam: Gen.: Nonacute distress, alert and oriented 3 ENT: Mucosal membranes moist Respiratory: Lungs are clear to auscultation bilaterally without any wheezing rhonchi or rales Cardiovascular: Normal S1 and S2 regular rate rhythm no murmurs rubs or gallops Abdomen: Soft, nontender and nondistended with positive bowel sounds Extremities: No lower extremity edema Skin: Normal color - Assessment and Plan (1) Pyelonephritis Current Visit: Yes Status: Acute Assessment and Plan: Urine cultures growing gram-negative bacteria; sensitivities pending Will continue IV ceftriaxone until final culture results known (2) Ureteral calculus Current Visit: Yes Status: Acute Assessment and Plan: On imaging, a 4 mm distal left ureteral calculus with hydronephrosis was identified Intraoperative radial graphic images revealed a filling defect in distal ureter consistent with stone above this level. significant hydroureteronephrosis noted. Based upon intraoperative interpretation of radiographic images urinary diversion was indicated. Patient now postop day 1 left double-J stent (3) Hydronephrosis Current Visit: Yes Status: Acute Assessment and Plan: Hydronephrosis with obstructing ureteral calculus; management as above (4) Sepsis Current Visit: Yes Status: Acute Assessment and Plan: Secondary to and management as above DVT Prophylaxis: Subcutaneous heparin - Time Spent with Patient Total time spent is greater than 50% in coordination of care (as documented) at patient's floor/unit and/or counseling patient: Internal Medicine: Result - Labs CBC & Chem 7: 04/20/19 12:35 04/20/19 12:35 - ABG Interpretation ABG results: PT/INR, D-dimer PT 12.8 Seconds (9.4-12.1) H 04/19/19 05:08 - Impressions Impressions Retrograde Pyelogram 04/19/19 00:00 IMPRESSION: Intraprocedural fluoroscopic spot images as above. See separate procedure report for more information. D/ / Tony Aguirre MD / Tony Aguirre MD Interpreting Provider: Tony Aguirre MD Consult Discharge Plan - Plan Referrals: NONE,PCP [Primary Care Provider] - ____ (3) Hydronephrosis Qualifiers: Hydronephrosis type: with ureteral calculous obstruction Qualified Code(s): N13.2 - Hydronephrosis with renal and ureteral calculous obstruction
--- NOTE | 2019-04-20 11:44 | Urology Progress Note ---
Date of Encounter: 04/20/19 Time of Encounter: 11:40 - Assessment and Plan (1) Hydronephrosis Current Visit: Yes Status: Acute Assessment and plan: Doing well status post urgent urinary diversion by stent placement. Patient with normal urinary frequency/stent irritation at every hour. She is not interested in home-going medication for stent irritation as oxybutynin may cause constipation. Plan: Please discharge patient to home with tamsulosin 0.4 mg daily 10 days. My office will arrange for outpatient follow-up for definitive stone management in the next 1-2 weeks. Qualifiers: Hydronephrosis type: with ureteral calculous obstruction Qualified Code(s): N13.2 - Hydronephrosis with renal and ureteral calculous obstruction (2) Ureteral calculus Current Visit: Yes Status: Acute (3) Pyelonephritis Current Visit: Yes Status: Acute Assessment and plan: Final culture report is still pending. Plan: Home on 10 day total course of antibiotics as per primary service when sensitivities are available. Progress Note Subjective: no new complaints Objective Initial Vital Signs Temp Pulse Resp BP Pulse Ox 98.4 F 110 20 154/95 98 04/18/19 20:10 04/18/19 20:10 04/18/19 20:10 04/18/19 20:10 04/18/19 20:10 - General physical appearance Present: well nourished, no distress - Respiratory Present: normal respiratory effort - Musculoskeletal Present: normal posture - Psychiatric Present: oriented to time, oriented to person, oriented to place - Labs 04/19/19 05:08 04/19/19 05:08 Consult Discharge Plan - Plan Referrals: NONE,PCP [Primary Care Provider] -
[2019-04-20] MEDS: cefTRIAXone 2,000 MG in Water for inj. (sterile) 20 ML 20 ML IVP SCH (12:04)
[2019-04-20 14:03] LABS: Basophils % 0.2 %; Eosinophils % 0.1 %; Hematocrit 33.7 % (35.3-44.9); Hemoglobin 10.8 g/dL (11.5-15.4); Immature Granulocytes % 0.5 % (0-4); Lymphocytes # 0.9 K/mcL (0.6-4.6); Lymphocytes % 7.5 %; Mean Corpuscular Volume 90.6 fL (83.0-100.0); Mean Platelet Volume 10.2 fL (9.4-12.4); Monocytes # 0.7 K/mcL (0.0-1.3); Monocytes % 5.8 %; Neutrophils # 10.1 K/mcL (1.6-8.9); Platelet Count 250 K/mcL (140-400); Red Blood Count 3.72 M/mcL (3.82-4.97); Red Cell Distribution Width 15.1 % (11.5-14.5); Segmented Neutrophils % 85.9 %
[2019-04-20 14:14] LABS: BUN/Creatinine Ratio 16 (6-26); Blood Urea Nitrogen 17 mg/dL (6-20); Carbon Dioxide 27 mEq/L (23-29); Chloride 106 mEq/L (98-107); Glucose 84 mg/dL (70-105); Osmolality,Calculated 289 (280-300); Potassium 3.3 mEq/L (3.5-5.1); Sodium 139 mEq/L (136-145); eGFR For Non-African Americans 58 (> 60)
[2019-04-21] MEDS: *HR* Heparin 5,000 UNIT/ML VIAL SQ SCH (06:15)
[2019-04-21 07:08] LABS: Basophils % 0.6 %; Eosinophils # 0.1 K/mcL (0.0-0.6); Eosinophils % 0.9 %; Hematocrit 31.1 % (35.3-44.9); Hemoglobin 10.1 g/dL (11.5-15.4); Immature Granulocytes % 0.3 % (0-4); Lymphocytes # 0.9 K/mcL (0.6-4.6); Lymphocytes % 14.1 %; Mean Corpuscular HGB Conc 32.5 g/dL (31.6-35.5); Mean Corpuscular Volume 89.4 fL (83.0-100.0); Mean Platelet Volume 9.8 fL (9.4-12.4); Monocytes # 0.6 K/mcL (0.0-1.3); Monocytes % 9.1 %; Neutrophils # 4.8 K/mcL (1.6-8.9); Platelet Count 223 K/mcL (140-400); Red Blood Count 3.48 M/mcL (3.82-4.97); Red Cell Distribution Width 14.9 % (11.5-14.5)
[2019-04-21 07:24] LABS: BUN/Creatinine Ratio 15 (6-26); Blood Urea Nitrogen 12 mg/dL (6-20); Calcium 8.9 mg/dL (8.6-10.3); Carbon Dioxide 25 mEq/L (23-29); Chloride 105 mEq/L (98-107); Glucose 87 mg/dL (70-105); Osmolality,Calculated 283 (280-300); Potassium 3.6 mEq/L (3.5-5.1); Sodium 137 mEq/L (136-145); eGFR For Non-African Americans > 60 (> 60)
[2019-04-21 10:49] VITALS: BP 113/77
[2019-04-21] MEDS: cefTRIAXone 2,000 MG in Water for inj. (sterile) 20 ML 20 ML IVP SCH (12:45)
--- NOTE | 2019-04-21 15:06 | Discharge Summary ---
Orders not resulted at time of discharge: Pending orders 04/19/19 05:17 Culture,Blood [BC] Routine 04/22/19 04:00 Basic Metabolic Panel AM 0400 Complete Blood Count [HEME] AM 0400 Date of Encounter: 04/21/19 Time of Encounter: 11:00 - Discharge Diagnosis (1) Pyelonephritis Priority: Primary Status: Acute (2) Ureteral calculus Priority: Secondary Status: Acute (3) Hydronephrosis Priority: Secondary Status: Acute Qualifiers: Hydronephrosis type: with ureteral calculous obstruction Qualified Code(s): N13.2 - Hydronephrosis with renal and ureteral calculous obstruction (4) Sepsis Priority: Secondary Status: Acute Qualifiers: Sepsis type: sepsis due to unspecified organism Qualified Code(s): A41.9 - Sepsis, unspecified organism Hospital course: Patient is a 43-year-old female with past medical history is that for 4 nephrolithiasis who presented due to a one-month history of left flank pain with urinary urgency. In the ER, patient was found to have a found to have 4 mm distal left ureteral calculus with hydronephrosis on imaging. During patients hospital stay, she was noted to be septic secondary to pyelonephritis which was treated with IV ceftriaxone and IV fluids. Urology consulted and patient now status post left double-J stent. Urine cultures grew Escherichia coli which was pansensitive and patient will be discharged to complete a 10 day course of Cipro. Patient will follow-up with urologist outpatient. - Time Spent with Patient Total time spent providing and/or coordinating discharge services: Time spent: Less than 30 minutes - Discharge Medications Prescriptions: New Ciprofloxacin HCl [Cipro] 500 mg PO BID #20 tablet Tamsulosin [Flomax] 0.4 mg PO DAILY 30 Days #30 capsule Continued Ibuprofen [Ibu-200] 200 mg PO Q6H PRN PRN Reason: Headache Home Medications: Ibuprofen [Ibu-200] 200 mg PO Q6H PRN 04/19/19 [History] Ciprofloxacin HCl [Cipro] 500 mg PO BID #20 tablet 04/21/19 [Rx] Tamsulosin [Flomax] 0.4 mg PO DAILY 30 Days #30 capsule 04/21/19 [Rx] Allergies/Adverse Reactions: Allergy/AdvReac Type Severity Reaction Status Date / Time peanut Allergy Swelling Verified 06/27/18 16:35 of Lip/Tongue/Throat tolmetin AdvReac Confusion Verified 04/19/19 15:47 Date of admission: 04/19/19 00:20 Primary care physician: PCP NONE Consults: 04/18/19 23:18 Consult to Urology [CONS] Stat Consulting Provider: Urology [facility] Reason for Consult: Renal Stone/UTI Call Completed: Yes - Constitutional Vitals: Temp Pulse Resp BP Pulse Ox 98 F 90 16 113/77 94 04/21/19 10:43 04/21/19 10:43 04/21/19 10:43 04/21/19 10:43 04/21/19 10:43 Exam: Gen.: Nonacute distress, alert and oriented 3 Skin: Normal color - Patient Status Disposition: Home, Self-Care Condition: Good - Discharge Instructions Instructions: Cystoscopy (DC), Acute Pyelonephritis (DC) Follow Up With: Terry Suh [Partnered Physician] - (Web Request. Office will call with appointment.) NONE,PCP [Primary Care Provider] - (Web request. Office will call with appointment date and time. Thank you)
== END 2019-04-21 16:19 | disposition home or self-care (01) | DRG 854 ==
LOC: 3ANU 19:59 → EMEROOARM 19:59 → SUATTDRO 04-19 00:20 → 3ANU 04-19 01:13
PROVIDERS: ADMIT Internal Medicine; ATTEND Hospitalist